=== PATIENT | male | born 1950 | race Caucasian/White ===

== ENCOUNTER 2024-02-26 22:04 | Emergency (ER) | payer OTHER, SELFPAY ==
[2024-02-26 22:04] VITALS: BMI 37.4
[2024-02-26 22:06] VITALS: BP 133/75
[2024-02-26 22:26] LABS: Hematocrit 37.7 % (39.0-52.0); Mean Corp Hgb Conc. 34.5 g/dL (33.0-37.0); Mean Corpuscular Hgb 28.3 pg (27.0-31.0); Mean Corpuscular Volume 82.1 fL (80.0-94.0); Mean Platelet Volume 9.5 fL (7.4-10.4); Platelet Count 214 10^3/uL (130-400); Red Blood Cell Count 4.59 10^6/uL (4.70-6.10); Red Cell Dist. Width 14.4 % (11.5-14.5)
[2024-02-26 22:40] LABS: ALT (SGPT) 13 U/L (0-50); AST (SGOT) 20 U/L (17-59); Albumin 3.8 g/dl (3.5-5.0); Alkaline Phosphatase 66 U/L (38-126); Blood Urea Nitrogen 27 mg/dl (9-20); Calcium 9.1 mg/dl (8.4-10.2); Carbon Dioxide 22 mmol/L (22-30); Chloride 106 mmol/L (98-107); Estimated Creatinine Clearance 79 ml/min; Glucose 130 mg/dl (70-99); Potassium 4.1 mmol/L (3.5-5.1); Sodium 134 mmol/L (135-145); Total Bilirubin 0.3 mg/dl (0.2-1.3); Total Protein 6.7 g/dl (6.3-8.2); eGFR > 60.00
[2024-02-26 22:46] LABS: D-Dimer 0.87 ug/mlFEU (0.00-0.50)
[2024-02-26 22:50] LABS: Troponin I < 0.012 ng/ml
[2024-02-26 23:00] VITALS: BP 132/68
[2024-02-26] MEDS: NSS 500 IV (23:01)
--- NOTE | 2024-02-26 23:21 | ED.GENMED ---
History of Present Illness
<JULIETH Unger - Last Filed: 02/27/24 06:29>
General
Chief Complaint: Chest Pain
Source: patient and family
Exam Limitations: none
Time Seen by Provider: 02/26/24 22:48
Travel History
Have you had any contact with someone who has COVID-19?: No
Do you have any symptoms of coronavirus? Fever > 100 degrees, chills, cough, shortness of breath, sore throat, loss of taste or smell, muscle aches, or headache?: No
History of Present Illness
History of Present Illness:
This is a 73 yo male with PMH DM, HLD, HTN, and pulmonary fibrosis presenting for chest pain beginning at 1900 today. He states he noticed L sided chest nonradiating pressure 8/10 intensity at rest. He noticed this pain exacerbated with deep
inspiration. After calling 911, he took 3 doses of aspirin and was given 2 doses of nitroglycerin by EMS. Currently, he states that pain at rest has resolved, but he is still experiencing pleurisy. He denies nausea, vomiting, recent travel,
hemoptysis.
Labs significant for D Dimer elevated at .87 and troponin WNL.
Review of Systems
<JULIETH Unger - Last Filed: 02/27/24 06:29>
Review of Systems
Allergies reviewed?: Yes
Constitutional: Reports no symptoms
EENT: Reports no symptoms
Respiratory: Reports no symptoms
Cardiac: Reports chest pain
ABD/GI: Reports no symptoms
Musculoskeletal: Reports no symptoms
Phy Exam
<JULIETH Unger - Last Filed: 02/27/24 06:29>
General Physical Exam
General Presentation: well appearing
General age: appears stated age
General Skin: warm and dry
General Habitus: normal
General Mental: alert
Cardiovascular Exam
Cardiovascular Exam: regular rate/rhythm, no edema, no gallop, no murmur and other (no reproducible chest wall tenderness)
Pulmonary Exam
Pulmonary Exam: lungs clear, no respiratory distress, chest non tender, no crackles, no wheezing and no cough
Scores
<JULIETH Unger - Last Filed: 02/27/24 06:29>
Heart Score for Chest Pain Patients
STEMI patient?: No
History: Slightly or Non-Suspicious
ECG: Normal
Age: >/= 65 years
Risk Factors: 1 or 2 Risk Factors
Troponin: </= Normal Limit
Heart Score for Chest Pain Patients: 3
Heart Score Risk: 2.5% MACE over next 6 weeks
<Michael Cortes DO - Last Filed: 02/27/24 07:03>
Heart Score for Chest Pain Patients
Heart Score for Chest Pain Patients: 3
Heart Score Risk: 2.5% MACE over next 6 weeks
<Tarik Trotter DO - Last Filed: 02/27/24 11:16>
Heart Score for Chest Pain Patients
Heart Score for Chest Pain Patients: 3
Heart Score Risk: 2.5% MACE over next 6 weeks
Course
<JULIETH Unger - Last Filed: 02/27/24 06:29>
Orders/Labs/Results
Orders:
Orders
02/26/24 22:05
Electrocardiogram (*1) Urgent
Reason for Study: QTc Monitoring
EKG- Treatment ONCE
02/26/24 22:20
Complete Blood Count/With Diff Urgent
Comprehensive Metabolic Panel Urgent
D-Dimer Urgent
Manual Differential Urgent
Troponin I Urgent
02/26/24 22:57
0.9% Sodium Chloride 500 ml [Nss] 500 ml IV BOLUS
02/26/24 23:49
Nitroglycerin Ointment [Nitro-Bid] 1 inch TOPICAL NOW STA
02/27/24 00:15
CT Chest Pe Study Urgent
Reason For Exam: Elevated D-dimer, chest pressure, respiratory dist
02/27/24 01:31
Troponin I Urgent
02/27/24 02:36
Nitroglycerin Sublingual [Nitrostat (Sublingual)] 0.4 mg SL NOW STA
Abnormal Lab Results
02/26/24
22:20
WBC 14.0 H 10^3/uL
(4.8-10.8)
RBC 4.59 L 10^6/uL
(4.70-6.10)
Hct 37.7 L %
(39.0-52.0)
D-Dimer 0.87 H ug/mlFEU
(0.00-0.50)
Sodium 134 L mmol/L
(135-145)
BUN 27 H mg/dl
(9-20)
Glucose 130 H mg/dl
(70-99)
02/26/24 22:20
02/26/24 22:20
Vital Signs
Initial and Last Documented VS:
Initial Vital Signs
Temp Pulse Resp BP Pulse Ox
99 F 74 20 133/75 94
02/26/24 22:06 02/26/24 22:06 02/26/24 22:06 02/26/24 22:06 02/26/24 22:06
Last Documented Vital Signs
Temp Pulse Resp BP Pulse Ox
99 F 82 15 114/61 94
02/26/24 22:06 02/27/24 10:30 02/27/24 10:30 02/27/24 10:00 02/27/24 10:30
Zohralt;Michael Cortes, DO - Last Filed: 02/27/24 07:03>
Orders/Labs/Results
Orders:
Orders
02/26/24 22:05
Electrocardiogram (*1) Urgent
Reason for Study: QTc Monitoring
EKG- Treatment ONCE
02/26/24 22:20
Complete Blood Count/With Diff Urgent
Comprehensive Metabolic Panel Urgent
D-Dimer Urgent
Manual Differential Urgent
Troponin I Urgent
02/26/24 22:57
0.9% Sodium Chloride 500 ml [Nss] 500 ml IV BOLUS
02/26/24 23:49
Nitroglycerin Ointment [Nitro-Bid] 1 inch TOPICAL NOW STA
02/27/24 00:15
CT Chest Pe Study Urgent
Reason For Exam: Elevated D-dimer, chest pressure, respiratory dist
02/27/24 01:31
Troponin I Urgent
02/27/24 02:36
Nitroglycerin Sublingual [Nitrostat (Sublingual)] 0.4 mg SL NOW STA
Abnormal Lab Results
02/26/24
22:20
WBC 14.0 H 10^3/uL
(4.8-10.8)
RBC 4.59 L 10^6/uL
(4.70-6.10)
Hct 37.7 L %
(39.0-52.0)
D-Dimer 0.87 H ug/mlFEU
(0.00-0.50)
Sodium 134 L mmol/L
(135-145)
BUN 27 H mg/dl
(9-20)
Glucose 130 H mg/dl
(70-99)
02/26/24 22:20
02/26/24 22:20
Vital Signs
Initial and Last Documented VS:
Initial Vital Signs
Temp Pulse Resp BP Pulse Ox
99 F 74 20 133/75 94
02/26/24 22:06 02/26/24 22:06 02/26/24 22:06 02/26/24 22:06 02/26/24 22:06
Last Documented Vital Signs
Temp Pulse Resp BP Pulse Ox
99 F 82 15 114/61 94
02/26/24 22:06 02/27/24 10:30 02/27/24 10:30 02/27/24 10:00 02/27/24 10:30
<Tarik Trotter DO - Last Filed: 02/27/24 11:16>
Orders/Labs/Results
Orders:
Orders
02/26/24 22:05
Electrocardiogram (*1) Urgent
Reason for Study: QTc Monitoring
EKG- Treatment ONCE
02/26/24 22:20
Complete Blood Count/With Diff Urgent
Comprehensive Metabolic Panel Urgent
D-Dimer Urgent
Manual Differential Urgent
Troponin I Urgent
02/26/24 22:57
0.9% Sodium Chloride 500 ml [Nss] 500 ml IV BOLUS
02/26/24 23:49
Nitroglycerin Ointment [Nitro-Bid] 1 inch TOPICAL NOW STA
02/27/24 00:15
CT Chest Pe Study Urgent
Reason For Exam: Elevated D-dimer, chest pressure, respiratory dist
02/27/24 01:31
Troponin I Urgent
02/27/24 02:36
Nitroglycerin Sublingual [Nitrostat (Sublingual)] 0.4 mg SL NOW STA
Abnormal Lab Results
02/26/24
22:20
WBC 14.0 H 10^3/uL
(4.8-10.8)
RBC 4.59 L 10^6/uL
(4.70-6.10)
Hct 37.7 L %
(39.0-52.0)
D-Dimer 0.87 H ug/mlFEU
(0.00-0.50)
Sodium 134 L mmol/L
(135-145)
BUN 27 H mg/dl
(9-20)
Glucose 130 H mg/dl
(70-99)
02/26/24 22:20
02/26/24 22:20
Vital Signs
Initial and Last Documented VS:
Initial Vital Signs
Temp Pulse Resp BP Pulse Ox
99 F 74 20 133/75 94
02/26/24 22:06 02/26/24 22:06 02/26/24 22:06 02/26/24 22:06 02/26/24 22:06
Last Documented Vital Signs
Temp Pulse Resp BP Pulse Ox
99 F 82 15 114/61 94
02/26/24 22:06 02/27/24 10:30 02/27/24 10:30 02/27/24 10:00 02/27/24 10:30
<JULIETH Unger - Last Filed: 02/27/24 06:29>
MDM/Problems Addressed
Differential Diagnosis Includes:
Pulmonary Embolism
Unstable Angina
MDM/Problems Addressed:
Patient has responded well to each dose of nitroglycerine, in terms of both reduced BP and improving chest pain
<Michael Cortes DO - Last Filed: 02/27/24 07:03>
*Critical Care Note
Total Time (30-74mins, 75-104mins- exclusive of procedures): Not Applicable
<Tarik Trotter DO - Last Filed: 02/27/24 11:16>
Patient Management
Escalation/DeEscalation of care consider admission/obs:
11:15 AM patient received in signout pending cardiology consultation. Seen by Dr. Nixon. Recommends discharge for outpatient cardiology follow-up
<Michael Cortes DO - Last Filed: 02/27/24 07:03>
Update Note
Update Note:
CT CHEST ANGIOGRAM
IMPRESSION:
Good bolus, moderate motion. No evidence of proximal pulmonary embolism
No evidence of aortic dissection or aneurysm. Moderate cardiomegaly.
Likely interstitial lung disease with reticulation throughout the periphery of the lungs. Consider pulmonology consultation and/or follow up.
No focal airspace consolidation. No pleural effusion or pneumothorax.
Small hiatal hernia.
Case finalized at 1250am ET
ED Attending Note
<JULIETH Unger - Last Filed: 02/27/24 06:29>
-
Portions of this chart may have been created with voice recognition software.� Occasional wrong word or��sound alike� substitutions may have occurred due to the inherent limitations of voice recognition software.
<Michael Cortes DO - Last Filed: 02/27/24 07:03>
ED Attending Note
Patient seen and examined by attending physician: Yes
I performed the substantive portion of visit, reviewed & personally made and approve the management plan that is documented in note by myself or BEE.: Yes
ED Attending Note:
This a pleasant 73-year-old male that presents with chest pressure that began around 7 PM this evening. He states that the pain was on his left side and did not radiate. Initially it was 8 out of 10. He noted that his pain was worsened with
inspiration. He also reported that his blood pressure was elevated during this chest pressure. He called 911 and took 3 baby aspirin. EMS gave him 2 nitroglycerin pills which alleviated his pain. Patient has been seen by cardiology at [place]
and recently had a thallium stress test. He states that was normal. He also had a calcium scan which she also states was normal. His fisheries biologist said that he had some mitral regurg but states that it was minimal and did not need further
attention at this time. Patient was seen in conjunction with the PA student. I have reviewed and agree with the history and treatment plan presented. On my independent physical exam, patient is awake, alert, and oriented x3, no acute distress at
this time. Heart is regular rate rhythm. Lungs are clear to auscultation bilaterally. No reproducible chest wall pain.
Vital signs are stable. Patient not hypoxic
Nursing note reviewed. I agree with nursing documentation up to this point in time.
Home Meds and allergies reviewed.
NUMBER AND COMPLEXITY OF PROBLEMS ADDRESSED AT THE ENCOUNTER
� Chronic conditions affecting care:
� Acute Exacerbation and/or Progression of Chronic Illness:
� Differential Diagnosis includes:
AMOUNT AND/OR COMPLEXITY OF DATA TO BE REVIEWED AND ANALYZED
I performed an independent evaluation of the following and my interpretation is:
EKG: EKG shows normal sinus rhythm rate of 75 with left axis deviation present. Normal intervals, no evidence of acute ischemia present.
CT:
X-rays:
Ultrasound:
Laboratory Studies: Negative troponin. D-dimer is 0.87. Which is high even with age adjustment. CT scan ordered.
Other:
Review of other/old records: No old records that are pertinent here. Last visit here was 2007.
Clinical information was obtained by an independent historian: and family present at the bedside
Prescriptions/Medications Considered but not given:
Further testing considered but not performed:
RISK OF COMPLICATIONS AND/OR MORBIDITY OR MORTALITY OF PATIENT MANAGEMENT
Social determinants of health affecting care: Good Social Support
Discussion with other providers:
Escalation of care including admission/observation vs risk of discharge considered:
CRITICAL CARE NOTE: Not applicable
Total Time (exclusive of procedures):
Update:
Discharge Plan
Departure
Patient Disposition: Home (Routine Discharge)
Date of Disposition: 02/27/24
Time of Disposition: 04:11
Discharge Problem:
chest pain
Instructions: Chest Pain NON-DHP Building Mechanic Follow Up
Prescriptions:
No Action
metformin 500 mg Tablet
1,000 mg PO BID
losartan 25 mg Tablet
25 mg PO DAILY
rosuvastatin 20 mg Tablet
20 mg PO DAILY
diltiazem HCl 180 mg Capsule,Extended Release 24 Hr
180 mg PO DAILY
aspirin 81 mg Tablet,Delayed Release (Dr/Ec)
81 mg PO DAILY
gabapentin 300 mg Capsule
600 mg PO BID
Referrals:
Flaco Pichardo PA-C [Family Provider] -
Activity Restrictions/Additional Instructions:
Please see your fisheries biologist in follow-up as recommended by cardiology. Return immediately for vomiting, worsening pain, shortness of breath or any other concerns.
Interventions
Interventions:
*Risk Screen - Suicide Last Done: 02/26/24 22:06
*General Assessment Last Done: 02/26/24 22:35
*Neglect/Abuse Screening Last Done: 02/26/24 22:35
ED- Fall Risk Assessment Last Done: 02/26/24 22:25
*ED COVID-19 Vaccine History Last Done: 02/26/24 22:35
ED- Cardiac Assessment Last Done: 02/26/24 22:25
Discharge Date and Time
Print Language: TELUGU
[2024-02-27] VITALS (14 sets, daily range): BP systolic 104–157; BP diastolic 52–80
[2024-02-27] MEDS: NITRO-BID 1 INCH TOPICAL (00:34)
[2024-02-27 02:03] LABS: Troponin I < 0.012 ng/ml
[2024-02-27] MEDS: NITROSTAT (SUBLINGUAL) 0.400000000000000022 MG SL (02:53)
--- NOTE | 2024-02-27 10:03 | CON.CAR ---
Addendum entered and electronically signed by Uziel Nixon MD 02/27/24 12:26:
73 yo male with HTN, DM, hyperlipidemia, IPF presents to ED with chest pain. Hours of left sided chest pain overnight. Feels like a cramp. Prior to that, he has not noticed chest pain with activity, such as stairs. He does have chronic MATHIS with
his IPF. Exam with RRR, no murmurs, no edema. TnI <0.012 x2. EKG: no ischemic changes.
We were able to get records: Lexiscan nuclear stress test in 12/2023 showed normal perfusion without evidence of ischemia/infarction.
Chest pain. Does not appear to be ACS. I am not recommending additional cardiac evaluation at this time. He will follow up with his head animal trainer and PCP.
Original Note:
Consultation
Consultation Request
Date/Time Consultation Requested: 02/27/24833
Date/Time Consultation Performed: 02/27/24929
Requesting Provider: Dr. Bennett
Performing Provider: Layne MORAN for Dr. Nixon
Reason for Consultation: chest pain
Medical History
-
Chief Complaint: chest discomfort
History of Present Illness:
73 y/o male with HTN, DM, HLD, arthritis, and pulmonary fibrosis who is here for evaluation of chest discomfort that started last night around 7:30 PM. He was laying watching TV. It felt like a left-sided cramping. He checked his BP and it was quite
elevated. He waited, but the pain lasted for hours and BP remained elevated. His alerted EMS. He took 4 baby aspirin. He received nitro, which helped, but did not resolve the pain. He is currently CP free. His EKG is unremarkable overall, trops
normal. He has chronic SOB. He is not very active due to orthopedic issues.
Past Medical History
Past Medical History: HTN, Hypercholesterolemia, NIDDM and Other (pulmonary fibrosis, artritis)
Social History
Tobacco: Former Smoker (remotely)
Alcohol: Occasional
Personal:
Living: With Family
Family History
Family History: Reviewed & Not Pertinent
Allergies / Home Medications
Allergy/AdvReac Type Severity Reaction Status Date / Time
NKA - No Known Allergies Allergy Uncoded 02/13/08 18:20
�Medication �Instructions �Recorded �Confirmed �Type
losartan 25 mg tablet 25 mg PO DAILY Blood Pressure 02/26/24 02/27/24 History
metformin 500 mg tablet 1,000 mg PO BID Diabetes 02/26/24 02/27/24 History
rosuvastatin 20 mg tablet 20 mg PO DAILY High Cholesterol 02/26/24 02/27/24 History
aspirin 81 mg tablet,delayed 81 mg PO DAILY Blood Clot 02/27/24 02/27/24 History
release Prevention/Tx
diltiazem HCl 180 mg capsule,24 180 mg PO DAILY Blood Pressure 02/27/24 02/27/24 History
hr,extended release
gabapentin 300 mg capsule 600 mg PO BID Pain 02/27/24 02/27/24 History
Review of Systems
-
History Source: Patient
All other systems: Negative unless noted
Respiratory: Trouble Breathing (chronic, unchanged)
Cardiac: Chest Pain
Physical Exam
Vital Signs
Temp Pulse Resp BP Pulse Ox
99 F 85 18 113/60 93
02/26/24 22:06 02/27/24 09:45 02/27/24 09:45 02/27/24 09:00 02/27/24 09:45
Lab Results
02/26/24 22:20
02/26/24 22:20
Troponin I < 0.012 ng/ml 02/27/24 01:31
Physical Exam
General: Well Developed, Well Nourished and No Apparent Distress
HEENT: Normocephalic and Anicteric
Respiratory: Crackles (b/l bases)
Cardiac: Regular Rhythm
Skin: Warm and Dry
Neuro: AO x 3
Psych: Calm
Impression / Plan
-
Chest discomfort:
-resolved
-EKG okay, trops normal
-I requested records from Dr. Fonseca office and received EKG and stress test, as well as echo. EKG stable here when compared with previous 11/2023. Stress test 01/03/24: Lexiscan- no evidence for ischemia, EF 49%. Echo with EF 45-50% as below, mild
to moderate MR.
HTN:
-elevated last night before arrival, but fine here s/p nitro
-on diltiazem, losartan- continue
DM:
-on metformin
Dyslipidemia:
-continue statin
Data Reviewed
-
EKG: Tracing Personally Visualized and interpreted (NSR LAD, nonspecific t abnormality )
CT Scan: Report Reviewed by me
Medical Tests (Nuc Med, Echo etc): Other (Stress test 01/03/24: lexiscan- no evidence for ischemia, EF 49%. Echo 08/21/23: EF 45-50%, mild LVH, grade I DD, mild to moderate MR, mild TR)
Labs: Labs Reviewed by me
Old Records: Requested (requested records from Dr. Fonseca (stress test, echo, OV note))
[2024-02-27 13:06] LABS: Band Neutrophils 0 % (0-3); Eosinophils 7 % (0-6); Lymphocytes 48 % (20-51); Monocytes 2 % (2-9); Normal RBC Morphology Yes; Platelets Checked Yes; Segmented Neutrophils 43 % (42-75)
[2024-02-27 13:07] LABS: Total Cells Counted 100
== END 2024-02-27 11:25 | disposition home or self-care (01) ==
LOC: EMR 22:04
PROVIDERS: Emergency Medicine; EMERGENCY PHYSICIAN Student in an Organized Health Care Education/Training Program; FAMILY PHYSICIAN Physician Assistant Medical; OTHER PHYSICIAN Internal Medicine
DX: R07.89 Other chest pain (principal); E11.9 Type 2 diabetes mellitus without complications; E78.00 Pure hypercholesterolemia, unspecified; I11.9 Hypertensive heart disease without heart failure; J84.10 Pulmonary fibrosis, unspecified; Z83.3 Family history of diabetes mellitus; Z83.49 Family history of other endocrine, nutritional and metabolic diseases; Z87.891 Personal history of nicotine dependence
CPT/HCPCS: 99284; 96360; 71275; 80053; 84484; 85025; 85379; 93005; Q9967